=== PATIENT | male | born 1980 | race Caucasian/White ===

== ENCOUNTER 2019-03-19 16:17 | Emergency (ER) | payer SELFPAY ==
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
[2019-03-19 17:17] VITALS: BP 150/95
--- NOTE | 2019-03-19 18:01 | XRay Report ---
CHEST 2 VIEWS INDICATION / CLINICAL INFORMATION: Chest pain. COMPARISON: None available. FINDINGS: SUPPORT DEVICES: None. HEART / MEDIASTINUM: No significant abnormality. LUNGS / PLEURA: No significant pulmonary or pleural abnormality. No pneumothorax. ADDITIONAL FINDINGS: RUQ surgical clips likely indicate previous cholecystectomy. IMPRESSION: 1. No acute findings. Signer Name: Fito Oneill MD Signed: 03/19/2019 5:56 PM Workstation Name: [id number]
== END 2019-03-19 20:24 | disposition left against medical advice (07) ==
LOC: ED 16:17
DX: R07.89 Other chest pain (principal); Z53.21 Procedure and treatment not carried out due to patient leaving prior to being seen by health care provider
CPT/HCPCS: 71046; 93005; 93010